=== PATIENT | female | born 1965 | race Caucasian/White ===

== ENCOUNTER 2016-12-27 13:20 | Emergency (ER) | payer BC ==
[2016-12-27 14:04] VITALS: BP 144/83
[2016-12-27 14:06] LABS: CHLORIDE,CL 107 mEq/L (98-106); SODIUM,NA 143 mEq/L (136-145)
--- NOTE | 2016-12-27 14:53 | EDM.PDOC ---
ED HPI GENERAL MEDICAL PROBLEM - General Chief Complaint: General Stated Complaint: throat tightness Time Seen by Provider: 12/27/16 13:30 Source of Information: Reports: Patient History Limitations: Reports: No Limitations - History of Present Illness INITIAL COMMENTS - FREE TEXT/NARRATIVE: Radha is a 51 yo female who presents to the ER with concerns of throat tightness. States it initially started bothering her about a week ago and was experiencing some chest and left arm discomfort with it as well. The arm and chest discomfort have subsided but feels a tightness in her throat now. Admits to a history of this in the past and had a cardiac work up with stress test and everything was normal. She states she was told it was anxiety at that time. She admits to being under a lot of stress recently, so this may be the culprit. Duration: Waxing/Waning - Related Data Allergies Allergy/AdvReac Type Severity Reaction Status Date / Time Sulfa (Sulfonamide Allergy Intermediate Hives Verified 12/27/16 13:19 Antibiotics) Home Meds: Home Meds . [No Known Home Meds] 12/27/16 [History] Past Medical History Psychiatric History: Reports: Anxiety - Infectious Disease History Infectious Disease History: Reports: Chicken Pox Social & Family History - Tobacco Use Smoking Status *Q: Never Smoker Second Hand Smoke Exposure: Yes - Caffeine Use Caffeine Use: Reports: None - Alcohol Use Days Per Week of Alcohol Use: 2 Number of Drinks Per Day: 2 Total Drinks Per Week: 4 - Recreational Drug Use Recreational Drug Use: No ED ROS GENERAL - Review of Systems Review Of Systems: See Below Constitutional: Denies: Fever, Chills, Fatigue, Decreased Appetite HEENT: Reports: No Symptoms. Denies: Throat Pain Respiratory: Denies: Shortness of Breath, Wheezing, Cough Cardiovascular: Reports: Palpitations. Denies: Chest Pain, Edema, Lightheadedness, Syncope GI/Abdominal: Reports: Constipation. Denies: Bloody Stool, Diarrhea, Hematochezia, Melena, Nausea, Vomiting : Reports: No Symptoms Skin: Reports: No Symptoms Neurological: Reports: No Symptoms Psychiatric: Reports: Anxiety. Denies: Suicidal Ideation ED EXAM, GENERAL - Physical Exam Exam: See Below Exam Limited By: No Limitations General Appearance: Alert, WD/WN, No Apparent Distress Ears: Normal External Exam, Normal Canal, Hearing Grossly Normal, Normal TMs Nose: Normal Inspection, No Blood Throat/Mouth: Normal Inspection, Normal Lips, Normal Teeth, Normal Gums, Normal Oropharynx, Normal Voice, No Airway Compromise Head: Atraumatic, Normocephalic Neck: Normal Inspection, Supple, Non-Tender Respiratory/Chest: No Respiratory Distress, Lungs Clear, Normal Breath Sounds Cardiovascular: Normal Peripheral Pulses, Regular Rate, Rhythm, No Edema, No Murmur GI/Abdominal: Normal Bowel Sounds, Soft, Non-Tender, No Organomegaly, No Distention, No Mass Back Exam: Normal Inspection. No: CVA Tenderness (L), CVA Tenderness (R) Extremities: Normal Inspection, No Pedal Edema, Normal Capillary Refill Neurological: Alert, Oriented, Normal Cognition, No Motor/Sensory Deficits Psychiatric: Normal Affect, Normal Mood Skin Exam: Warm, Dry, Intact, Normal Color, No Rash EKG INTERPRETATION EKG Date: 12/27/16 Rhythm: NSR Course - Vital Signs Last Recorded V/S: Last Vital Signs Temp 99.4 F 12/27/16 13:20 Pulse 71 12/27/16 13:52 Resp 18 12/27/16 13:52 BP 144/83 H 12/27/16 13:52 Pulse Ox 99 12/27/16 13:52 - Orders/Labs/Meds Orders: Active Orders 24 hr Category Date Time Status Chest 2V [CR] Stat Exams 12/27/16 13:43 Taken Labs: Laboratory Tests 12/27/16 12/27/16 12/27/16 Range/Units 13:36 13:36 13:36 WBC 5.5 (5.0-10.0) 10^3/uL RBC 4.22 (4.00-5.50) 10^6/uL Hgb 13.2 (12.0-16.0) g/dL Hct 39.8 (37.0-47.0) % MCV 94.3 H (82.0-94.0) fL MCH 31.3 (27.0-32.0) pg MCHC 33.2 (33.0-38.0) g/dL RDW Coeff of Chelle 11.9 (11.0-15.0) % Plt Count 186 (150-400) 10^3/uL Neut % (Auto) 66.5 (35-85) % Lymph % (Auto) 24.3 (10-55) % Pender % (Auto) 8.6 (0-16) % Eos % (Auto) 0.4 (0-5) % Baso % (Auto) 0.2 (0-3) % Neut # (Auto) 3.64 (1.80-7.00) 10^3/uL Lymph # (Auto) 1.33 (1.00-4.80) 10^3/uL Pender # (Auto) 0.47 (0.00-0.80) 10^3/uL Eos # (Auto) 0.02 (0.00-0.45) 10^3/uL Baso # (Auto) 0.01 10^3/uL PT 11.1 (9.7-12.3) SEC INR 1.03 (0.92-1.18) APTT 25.0 (20.0-45.0) SEC Sodium 143 (136-145) mEq/L Potassium 4.0 (3.5-5.0) mEq/L Chloride 107 H (98-106) mEq/L Carbon Dioxide 28 (21-32) mmol/L BUN 16 (7-18) mg/dL Creatinine 0.7 (0.6-1.0) mg/dL Est Cr Clr Drug Dosing 87.01 mL/min Estimated GFR (MDRD) > 60 (>=60) mL/min Glucose 137 H D (75-99) mg/dL Calcium 9.0 (8.4-10.1) mg/dL Lactate Dehydrogenase 199 H (100-190) U/L Creatine Kinase 87 (21-215) U/L Troponin I < 0.017 (0.00-0.06) ng/mL Departure - Departure Time of Disposition: 14:52 Disposition: Home, Self-Care 01 Clinical Impression: Acute anxiety - Discharge Information Instructions: Panic Attacks, [id number], Palpitations, [id number] Referrals: PCP,None [Primary Care Provider] - Forms: ED Department Discharge Additional Instructions: 1) Rest and Relax today. 2) Think about treatment options as we discussed and if at any point would like to proceed with one to just let us know. 3) If pain is worse and any concerns at all to return immediately for reevaluation. - Problem List & Annotations (1) Acute anxiety SNOMED Code(s): 75032625 Code(s): F41.9 - ANXIETY DISORDER, UNSPECIFIED Status: Acute Current Visit: Yes - Problem List Review Problem List Initiated/Reviewed/Updated: Yes - My Orders Last 24 Hours: My Active Orders 12/27/16 13:43 Chest 2V [CR] Stat - Assessment/Plan Last 24 Hours: My Active Orders 12/27/16 13:43 Chest 2V [CR] Stat Plan: EKG, labs and chest x-ray were all stable today. Will discharge home at this time. Discussed treatment option in regards to anxiety and will think about it. Has physical scheduled in January. Advised if she would like to proceed with treatment sooner that to let us know. Radha was in agreement and felt better prior to discharge.
== END 2016-12-27 14:58 | disposition home or self-care (01) ==
LOC: CC.ED 13:20
DX: F41.9 Anxiety disorder, unspecified (principal); Z88.2 Allergy status to sulfonamides
CPT/HCPCS: 36415; 71020; 80048; 82550; 83615; 84484; 85025; 85610; 85730; 93005; 99285

== ENCOUNTER 2023-10-10 10:32 | Day surgery (SDC) | payer BC ==
[2023-10-10] MEDS: Lidocaine 1% 30 ML SDV INJECT ONE ×2 (11:58→12:45)
[2023-10-10 13:37] VITALS: BP 166/100; PULSE 79
== END 2023-10-10 13:30 | disposition home or self-care (01) ==
LOC: CC.SDS 10:32
PROVIDERS: ATTEND Family Medicine
DX: I83.813 Varicose veins of bilateral lower extremities with pain (principal); Z88.2 Allergy status to sulfonamides
CPT/HCPCS: 36482; C1888; J3490

== ENCOUNTER → 2023-11-14 | Day surgery (SDC) | payer BC ==
[2023-11-14] MEDS: Lidocaine 1% 5 ML VIAL INJECT ONE (13:07)
== END ==
LOC: CC.SDS 12:24
PROVIDERS: ATTEND Family Medicine
DX: I83.92 Asymptomatic varicose veins of left lower extremity (principal); I87.2 Venous insufficiency (chronic) (peripheral); Z88.2 Allergy status to sulfonamides; Z79.899 Other long term (current) drug therapy
CPT/HCPCS: C1888; J3490